=== PATIENT | female | born 2000 | race Caucasian/White ===

== ENCOUNTER 2021-07-03 18:51 | Emergency (ER) | payer SELFPAY ==
[~2021-07-03] VITALS: Ht 160 cm; Wt 59.1 kg
[2021-07-03 18:52] VITALS: BP 116/68
[2021-07-03] MEDS ORDERED: BUPIVACAINE HCL 0.5% 30 ML VIAL SC ONE (20:15)
[2021-07-03] MEDS ORDERED: LIDOCAINE W/EPINEPHRINE 1% 20ML VIAL SC ONE (20:15)
[2021-07-03] MEDS ORDERED: INFANRIX VACCINE SYRINGE (DIPHTH/TET/ACEL PERTUS PEDIATRIC) (CPT 90700) IM ONE (21:15)
[2021-07-03] MEDS ORDERED: ceFAZolin 1GM VIAL (J0690 PER 500MG) IM ONE (21:15)
== END 2021-07-03 22:19 | disposition home or self-care (01) ==
LOC: M ED 18:51
DX: S01.81XA Laceration without foreign body of other part of head, initial encounter (principal); W01.198A Fall on same level from slipping, tripping and stumbling with subsequent striking against other object, initial encounter; W55.12XA Struck by horse, initial encounter; Y92.9 Unspecified place or not applicable; Y93.9 Activity, unspecified; Y99.9 Unspecified external cause status
CPT/HCPCS: 12004; 12011; 70450; 72125; 90471; 90715; 96372; 99282; J0690